=== PATIENT | female | born 1960 | race Caucasian/White ===

== ENCOUNTER → 2017-10-25 12:44 | Outpatient (POV) | payer BC, SELFPAY | PROVIDERS: PCP Pediatrics | DX: Z00.00 Encounter for general adult medical examination without abnormal findings (principal) ==

== ENCOUNTER → 2018-04-11 13:15 | Outpatient (POV) | payer BC, SELFPAY | PROVIDERS: PCP Pediatrics | DX: Z00.00 Encounter for general adult medical examination without abnormal findings (principal) ==

== ENCOUNTER → 2018-09-26 12:52 | Outpatient (POV) | payer BC, SELFPAY | DX: Z00.00 Encounter for general adult medical examination without abnormal findings (principal) ==